=== PATIENT | male | born 1955 | race Caucasian/White ===

== ENCOUNTER 2021-07-09 09:45 | Outpatient (CLI) | payer MEDICARE, SELFPAY ==
--- NOTE | 2021-07-09 11:15 | NEURO_ITS ---
Impression: # Complains of numbness of hands. # Mild bilateral Carpal Tunnel Syndrome. # Right ulnar neuropathy across the elbow. # Normal needle/EMG exam. Nerve Conduction Studies Anti Sensory Summary Table Stim Site NR Peak (ms) P-T Amp (?V) Site1 Site2 Delta-P (ms) Dist (cm) Isaiah (m/s) Left Median Anti Sensory (2-3nd Digit) Wrist 4.5 10.7 Wrist 2-3nd Digit 4.5 14.0 31 Wrist 4.8 16.0 Wrist 2-3nd Digit 4.5 14.0 31 Right Median Anti Sensory (2-3nd Digit) Wrist 3.7 21.2 Wrist 2-3nd Digit 3.7 14.0 38 Wrist 3.7 17.1 Wrist 2-3nd Digit 3.7 14.0 38 Left Radial Anti Sensory (Base 1st Digit) Wrist 2.0 30.4 Wrist Base 1st Digit 2.0 0.0 Right Radial Anti Sensory (Base 1st Digit) Wrist 2.5 11.0 Wrist Base 1st Digit 2.5 0.0 Left Ulnar Anti Sensory (5th Digit) Wrist 2.9 27.1 Wrist 5th Digit 2.9 14.0 48 Right Ulnar Anti Sensory (5th Digit) Wrist 2.6 10.7 Wrist 5th Digit 2.6 14.0 54 Motor Summary Table Stim Site NR Onset (ms) O-P Amp (mV) Site1 Site2 Delta-0 (ms) Dist (cm) Isaiah (m/s) Left Median Motor (Abd Poll Brev) Wrist 4.1 5.9 Elbow Wrist 5.3 29.0 55 Elbow 9.4 3.8 Right Median Motor (Abd Poll Brev) Wrist 4.1 1.7 Elbow Wrist 4.9 29.0 59 Elbow 9.0 1.5 Left Ulnar Motor (Abd Dig Minimi) Wrist 3.0 5.9 A Elbow Wrist 5.3 29.0 55 A Elbow 8.3 4.3 Right Ulnar Motor (Abd Dig Minimi) Wrist 2.9 7.3 A Elbow Wrist 6.0 29.0 48 A Elbow 8.9 6.0 B Elbow Wrist 3.9 20.0 51 B Elbow 6.8 3.1 F Wave Studies NR F-Lat (ms) L-R F-Lat (ms) Left Median (Mrkrs) (Abd Poll Brev) 28.95 0.41 Right Median (Mrkrs) (Abd Poll Brev) 29.36 0.41 Left Ulnar (Mrkrs) (Abd Dig Min) 28.70 1.13 Right Ulnar (Mrkrs) (Abd Dig Min) 29.83 1.13 EMG Side Muscle Nerve Root Ins Act Fibs Amp Dur Recrt Comment Right 1stDorInt Ulnar C8-T1 Nml Nml Nml Nml Nml Right Ext Indicis Radial (Post Int) C7-8 Nml Nml Nml Nml Nml Right Ext Digitorum Radial (Post Int) C7-8 Nml Nml Nml Nml Nml Right BrachioRad Radial C5-6 Nml Nml Nml Nml Nml Right PronatorTeres Median C6-7 Nml Nml Nml Nml Nml Right Abd Poll Brev Median C8-T1 Nml Nml Nml Nml Nml Left 1stDorInt Ulnar C8-T1 Nml Nml Nml Nml Nml Left Ext Indicis Radial (Post Int) C7-8 Nml Nml Nml Nml Nml Left Ext Digitorum Radial (Post Int) C7-8 Nml Nml Nml Nml Nml Left BrachioRad Radial C5-6 Nml Nml Nml Nml Nml Left PronatorTeres Median C6-7 Nml Nml Nml Nml Nml Left Abd Poll Brev Median C8-T1 Nml Nml Nml Nml Nml Right ABD Dig Min Ulnar C8-T1 Nml Nml Nml Nml Nml Left ABD Dig Min Ulnar C8-T1 Nml Nml Nml Nml Nml MTDD
== END 2021-07-09 09:46 | disposition home or self-care (01) ==
PROVIDERS: PCP Internal Medicine; Visit Provider Internal Medicine
DX: R20.2 Paresthesia of skin (principal); G56.03 Carpal tunnel syndrome, bilateral upper limbs; G56.21 Lesion of ulnar nerve, right upper limb
CPT/HCPCS: 95886; 95911

== ENCOUNTER 2023-03-13 03:25 | Day surgery (SDC) | payer MEDICARE, SELFPAY ==
[2023-02-17 14:12] VITALS: BMI 30.2
--- NOTE | 2023-03-11 11:31 | SUR.PREOP ---
Patient called regarding upcoming procedure. Message left on pt's voicemail regarding appointment times.
[2023-03-13 12:25] VITALS: BP 150/86; PULSE 64; RESP 16; TEMP 35.7; O2SAT 100
--- NOTE | 2023-03-13 12:34 | WPDANESEPPF ---
Anes - Initial Pre Proc Eval Procedure: Operation Date: 03/13/23 13:00 Proposed Procedures p Colonoscopy - Simone Saavedra MD Date/Time: 03/13/23 12:34 Surgeon: Simone Saavedra MD Pre Op Diagnosis: other fecal abnormalities Patient Data Age: 67 Gender: M Height: 1.78 m Weight: 94.9 kg Last Vital Signs Temp 96.2 F L 03/13/23 12:25 Pulse 64 03/13/23 12:25 Resp 16 03/13/23 12:25 BP 150/86 H 03/13/23 12:25 Pulse Ox 100 03/13/23 12:25 O2 Del Method Room Air 03/13/23 12:25 Allergies Allergy/AdvReac Type Severity Reaction Status Date / Time meperidine Allergy Mild Rash Verified 03/13/23 12:22 Fruit Juice Allergy Unknown HIVES/RED Uncoded 03/13/23 12:22 FACE WITH CERTAIN JUICES Home Medications Medication Instructions Recorded Confirmed Type finasteride 5 mg tablet 5 mg PO DAILY 11/01/21 03/13/23 History amlodipine 5 mg tablet 5 mg PO DAILY 02/17/23 03/13/23 History atorvastatin 20 mg tablet 20 mg PO DAILY 02/17/23 03/13/23 History hydroxyzine HCl 25 mg tablet 25 mg PO TID PRN Anxiety 02/17/23 03/13/23 History metoprolol succinate 25 mg 25 mg PO DAILY 02/17/23 03/13/23 History tablet,extended release 24 hr tamsulosin 0.4 mg capsule 0.4 mg PO DAILY 02/17/23 03/13/23 History lisinopril 40 mg tablet 40 mg PO BID #180 tabs 03/11/23 03/13/23 Rx Patient hx anesthesia problems: none Family hx anesthesia problems: none Results Review: All pre-operative results and documents have been reviewed as part of the pre-operative evaluation. REPLACED BY [facility] Past Medical History Medical History COVID-19 Family History Family History Mother Family history of diabetes mellitus in first degree relative Social History Social History Smoking status: Never smoker Alcohol intake: never Substance use: never Substance use type: does not use Living arrangements: alone 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 Gender identity (if verbalized by the patient): Male Sexual Orientation (if Verbalized by the Patient): Straight or Heterosexual Spiritual care concerns: No Anes - Eval Final PreProcedure Day of Procedure 03/13/23 12:34 Patient weight: obese Heart: regular rate and rhythm Lungs: clear to auscultation Airway: Mallampati scale class II Neurological: alert and oriented Last oral intake: >/= 8 hours ASA classification: III Emergent: no Anesthetic plan: proceed Anesthesia type and monitoring: general GIVS and standard monitoring Results Review: All pre-operative results and documents have been reviewed as part of the pre-operative evaluation. Informed Consent: The patient's anesthetic plan and its attendant risks and benefits were discussed with the patient/family/POA. Questions were solicited and answers provided to the satisfaction of the patient/family/POA.
[2023-03-13] MEDS: LACTATED RINGERS 1,000 ML 150 ML IV CONT (12:44)
--- NOTE | 2023-03-13 13:02 | PM.HPGS ---
History of Present Illness History of Present Illness Consent: Risks, benefits, and alternatives have been discussed and questions answered. Patient agrees to proceed with procedure. Chief complaint: other fecal abnormalities Narrative: Erasmo Elliott is a 67 year old male here for first colonoscopy, + cologuard Review of Systems Constitutional: Constitutional: Denies headache(s) and Denies weakness Eyes: Eyes: Denies blurry vision ENT: Reports Normal hearing present, Denies headache(s) and Denies neck pain Cardiovascular: Cardiovascular: Denies chest pain and Denies dyspnea Respiratory: Respiratory: Denies dyspnea Gastrointestinal: Gastrointestinal: Reports no additional gastrointestinal complaints Genitourinary: Genitourinary: Denies dysuria Musculoskeletal: Musculoskeletal: Denies neck pain Integumentary/Breasts: Skin/Breast: Denies dry skin Neurologic: Reports Normal hearing present, Denies headache(s) and Denies weakness Psychiatric: Psychiatric: Denies anxiety Endocrine: Endocrine: Denies change in body appearance Hematologic/Lymphatic: Hematologic/Lymphatic: Denies easy bleeding Allergic/Immunologic: Allergic/Immunologic: Denies urticaria PMFSH Past Medical History Medical History COVID-19 Family History Family History Mother Family history of diabetes mellitus in first degree relative Social History Social History Smoking status: Never smoker Alcohol intake: never Substance use: never Substance use type: does not use Living arrangements: alone 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 Gender identity (if verbalized by the patient): Male Sexual Orientation (if Verbalized by the Patient): Straight or Heterosexual Spiritual care concerns: No Meds Home Medications and Allergies Home Medications Medication Instructions Recorded Confirmed Type finasteride 5 mg tablet 5 mg PO DAILY 11/01/21 03/13/23 History amlodipine 5 mg tablet 5 mg PO DAILY 02/17/23 03/13/23 History atorvastatin 20 mg tablet 20 mg PO DAILY 02/17/23 03/13/23 History hydroxyzine HCl 25 mg tablet 25 mg PO TID PRN Anxiety 02/17/23 03/13/23 History metoprolol succinate 25 mg 25 mg PO DAILY 02/17/23 03/13/23 History tablet,extended release 24 hr tamsulosin 0.4 mg capsule 0.4 mg PO DAILY 02/17/23 03/13/23 History lisinopril 40 mg tablet 40 mg PO BID #180 tabs 03/11/23 03/13/23 Rx Allergies Allergy/AdvReac Type Severity Reaction Status Date / Time meperidine Allergy Mild Rash Verified 03/13/23 12:22 Fruit Juice Allergy Unknown HIVES/RED Uncoded 03/13/23 12:22 FACE WITH CERTAIN JUICES Vital Signs Vital Signs - 24 hr 03/13/23 12:25 Temperature 96.2 F L Pulse Rate 64 Respiratory Rate 16 Blood Pressure 150/86 H Pulse Oximetry 100 Oxygen Delivery Room Air Exam Const: General: comfortable and no acute distress HENMT: Face/Nose/Sinus: Normal nares present Eyes: General: appearance normal, both eyes and all related structures Neck: Neck: no JVD Resp: Auscultation: clear to auscultation bilaterally Cardio: Rate: regular rate Rhythm: regular rhythm GI: Inspection: non-distended GI Palp: Yes Soft to palpation Skin: General skin exam: normal color Neuro: General: gait normal Speech: normal speech Extrem: General: normal to inspection Psych: Mental Status: mental status grossly normal Assessment and Plan Assessment and plan (1) Positive colorectal cancer screening using Cologuard test: Code(s): R19.5 - Other fecal abnormalities Status: Acute Assessment and Plan: colonoscopy
[2023-03-13 13:20] VITALS: BP 110/66; PULSE 60; RESP 20; O2SAT 100
[2023-03-13 13:30] VITALS: BP 113/77; PULSE 56; RESP 20; O2SAT 99
[2023-03-13 13:40] VITALS: BP 126/70; PULSE 55; RESP 20; O2SAT 100
== END 2023-03-13 14:00 | disposition home or self-care (01) ==
PROVIDERS: PCP Nurse Practitioner; Visit Provider Internal Medicine Gastroenterology
PROC: 0DJD8ZZ Inspection of Lower Intestinal Tract, Via Natural or Artificial Opening Endoscopic (ICD-10-PCS; CPT 45378; principal; 2023-03-13 13:00)
DX: R19.5 Other fecal abnormalities (principal); D12.2 Benign neoplasm of ascending colon; D12.5 Benign neoplasm of sigmoid colon; K64.8 Other hemorrhoids; K62.3 Rectal prolapse
CPT/HCPCS: 45385; 88305; J2704; J7120